=== PATIENT | female | born 1985 | race Caucasian/White ===

== ENCOUNTER 2020-02-09 08:28 | Emergency (ER) | payer BC, OTHER ==
[~2020-02-09] VITALS: Ht 160 cm; Wt 107.3 kg
[2020-02-09 08:48] VITALS: BP 130/81
--- NOTE | 2020-02-09 08:57 | NUR ---
FIRST CONTACT WITH PT. PT STATES "I HAD A COUGH FOR A COUPLE WEEKS, STARTED GETTING A SORE THROAT AND EVEN WHEN IM LAYING DOWN ITS HARD TO BREATHE." SORE THROAT X3 DAYS. PT'S AOX4. RESPS EVEN AND UNLABORED. BP/SPO2 MONITORS IN PLACE. CALL LIGHT WITHIN REACH. PA AT BEDSIDE TO EVALUATE AT THIS TIME.
--- NOTE | 2020-02-09 09:07 | NUR ---
xray done at this time.
--- NOTE | 2020-02-09 09:28 | NUR ---
Patient given discharge instructions and they have confirmed that they understand the instructions.
== END 2020-02-09 09:29 | disposition home or self-care (01) ==
LOC: ED 08:57
DX: B34.9 Viral infection, unspecified (principal); J45.909 Unspecified asthma, uncomplicated; F17.210 Nicotine dependence, cigarettes, uncomplicated
CPT/HCPCS: 71045; 99283

== ENCOUNTER 2020-03-21 19:22 | Emergency (ER) | payer OTHER ==
[~2020-03-21] VITALS: Ht 160 cm; Wt 108.2 kg
--- NOTE | 2020-03-21 19:42 | NUR ---
Pt states she has chronic knee pain and stated that her MD told her that she needed surgery 10 years ago. Pt states that today it feels worse because she is not able to walk on it as well. SANDRO at [facility].
[2020-03-21] MEDS ORDERED: HYDROcodone/APAP 5/325 TABLET PO STA (19:46)
[2020-03-21] MEDS ORDERED: HYDROcodone/APAP 5/325 TABLET ONE (20:03)
[2020-03-21 21:02] VITALS: BP 137/81
== END 2020-03-21 21:07 | disposition home or self-care (01) ==
LOC: ED 20:50
DX: M25.561 Pain in right knee (principal); J45.909 Unspecified asthma, uncomplicated; F17.200 Nicotine dependence, unspecified, uncomplicated
CPT/HCPCS: 99283